=== PATIENT | female | born 1985 | race Caucasian/White ===

== ENCOUNTER 2018-11-22 13:13 | Emergency (ER) | payer MEDICAID ==
[2018-11-22] MEDS ORDERED: cefTRIAXone 250 MG VIAL IM STA (14:04)
[2018-11-22] MEDS ORDERED: LIDOCAINE 1% 2 ML VIAL SUBQ ONE (14:04)
[2018-11-22] MEDS ORDERED: AZITHROMYCIN 250 MG TABLET PO STA (14:05)
--- NOTE | 2018-11-22 14:07 | ED Physician Documentation ---
PD HPI FEMALE - Stated complaint Stated Complaint: FEMALE - Chief complaint Chief Complaint: Abd Pain - History obtained from History obtained from: Patient - History of Present Illness Timing - onset: How many weeks ago (4) Timing - duration: Weeks Timing - details: Gradual onset, Still present Associated symptoms: Pelvic pain, Vaginal discharge Contributing factors: No: Similar symptoms before: Has not had sx before Recently seen: Not recently seen - Additional information Additional information: 33-year-old female indicates that she has had a vaginal discharge for the past 4 weeks. She states that it is thick white and not malodorous. She has had since something similar when she has had trichomonas. She states that it is possible that she has had STD. She has some mild pelvic pain she has not had fever. She does not have itching. Review of Systems Constitutional: denies: Fever Nose: denies: Congestion Respiratory: denies: Cough GI: denies: Abdominal Pain, Nausea, Vomiting : reports: Discharge. 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: Tubal ligation - Allergies Allergies/Adverse Reactions: Allergies Allergy/AdvReac Type Severity Reaction Status Date / Time No Known Drug Allergies Allergy Verified 11/22/18 13:22 - Social History Does the pt smoke?: Yes Smoking Status: Current every day smoker Does the pt drink ETOH?: No Does the pt have substance abuse?: No PD ED PE NORMAL - Vitals Vital signs reviewed: Yes (tachy and hypertensive ) - General General: Alert and oriented X 3, No acute distress, Well developed/nourished - HEENT HEENT: Atraumatic, PERRL, EOMI - Respiratory Respiratory: No respiratory distress - Female Female : 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 There is minimal cervical friability. There is cervical motion tenderness to bimanual palpation of the uterus. ) - Derm Derm: Normal color, Warm and dry, No rash - Extremities Extremities: No deformity, No edema - Neuro Neuro: Alert and oriented X 3, stock cutter 2-12 intact, No motor deficit, No sensory deficit, Normal speech Eye Opening: Spontaneous Motor: Obeys Commands Verbal: Oriented GCS Score: 15 - Psych Psych: Normal mood, Normal affect Results - Vitals Vitals: Vital Signs - 24 hr 11/22/18 11/22/18 13:21 15:14 Temperature 36.2 C L 36.2 C L Heart Rate 113 H 101 H Respiratory 16 16 Rate Blood Pressure 129/90 H 122/72 O2 Saturation 100 100 - Labs Labs: Microbiology 11/22/18 14:07 LI Preparation - Final Fluid - Vaginal 11/22/18 14:07 Wet Prep - Final Vaginal PD MEDICAL DECISION MAKING - ED course Complexity details: reviewed results, re-evaluated patient, considered ellen julio, d/w patient ED course: 33 y/o female with a 4 week history of vaginal discharge has cervical motion tenderness on exam. She is treated for STD. Cultures are obtained and she is instructed to follow up with [facility] if she has persistence of symptoms. Departure - Departure Disposition: 01 Home, Self Care Clinical Impression: Acute pelvic inflammatory disease Condition: Stable Instructions: ED PID Follow-Up: [facility] [Provider Group] Comments: Today you were treated for STD. Culture results will be available in 3 days. If you have persistence of discharge despite the treatment follow up with [facility]. Discharge Date/Time: 11/22/18 15:15
[2018-11-22 15:15] VITALS: BP 122/72
== END 2018-11-22 15:15 | disposition home or self-care (01) ==
LOC: ED 13:13
DX: N73.9 Female pelvic inflammatory disease, unspecified (principal); F17.200 Nicotine dependence, unspecified, uncomplicated
CPT/HCPCS: 87210; 87220; 87491; 87591; 96372; 99283; A9270